=== PATIENT | female | born 1995 | race African-American/Black ===

== ENCOUNTER → 2020-01-05 14:20 | Outpatient (BNVA) | payer SELFPAY | PROVIDERS: Visit Provider Family Medicine | DX: J02.9 Acute pharyngitis, unspecified (principal); B97.89 Other viral agents as the cause of diseases classified elsewhere | CPT/HCPCS: 87081; 87880 ==

== ENCOUNTER → 2020-01-06 12:57 | Outpatient (BNVA) | payer SELFPAY | PROVIDERS: Visit Provider Family Medicine | DX: R50.9 Fever, unspecified (principal); J01.00 Acute maxillary sinusitis, unspecified | CPT/HCPCS: 87400 ==